=== PATIENT | female | born 1970 | race Caucasian/White ===

== ENCOUNTER 2016-11-05 12:26 | Emergency (ER) | payer OTHER ==
[2016-11-05 12:26] VITALS: BMI 34.9
[2016-11-05 12:41] VITALS: TEMP 99.4
--- NOTE | 2016-11-05 12:52 | ED PDOC ---
Arrival/HPI - General Chief Complaint: Palpitations Time Seen by Provider: 11/05/16 12:40 Historian: Patient - History of Present Illness Narrative History of Present Illness (Text): 11/05/16 12:45 46 year old female whose past medical history includes SVT presents to the emergency department with palpations since 10:30/11:00 this morning. Patient states she has not followed up with content editor since being seen in the ER two months ago with similar symptoms. No chest pain, shortness of breath, or other symptoms. Time/Duration: 1-3 hours Symptom Onset: Sudden Symptom Course: Unchanged Modifying Factors (Text): None Associated Symptoms (Text): None Past Medical History - Provider Review Nursing Documentation Reviewed: Yes - Reproductive Menopause: No - Cardiac Hx Cardiac Disorders: No Hx Angina: No Hx Cardiac Arrhythmia: No Hx Circulatory Problems: No Hx Congestive Heart Failure: No Hx Heart Murmur: No Hx Heart Transplant: No Hx Hypertension: Yes Hx Internal Defibrillator: No Hx Mitral Valve Prolapse: No Hx Pacemaker: No Hx Peripheral Edema: No Hx Peripheral Vascular Disease: No - Pulmonary Hx Respiratory Disorders: No Hx Asthma: No Hx Bronchitis: No Hx Chronic Obstructive Pulmonary Disease (COPD): No Hx Emphysema: No Hx Pneumonia: No Hx Respiratory Aspiration: No Hx Respiratory Tract Infection: No Hx Sleep Apnea: No Hx Tuberculosis: No - Neurological Hx Neurological Disorder: No Hx Alzheimer's Disease: No HX Cerebrovascular Accident: No Hx Dementia: No Hx Dizziness: No Hx Meningitis: No Hx Migraine: No Hx Parkinson's Disease: No Hx Seizures: No Hx Transient Ischemic Attacks (TIA): No - HEENT Hx HEENT Disorder: No Hx Blind: No Hx Cataracts: No Hx Deafness: No Hx Difficulty Chewing: No Hx Epistaxis: No Hx Glaucoma: No Hx Macular Degeneration: No - Renal Hx Renal Disorder: No Hx Dialysis: No Hx Kidney Stones: No Hx Neurogenic Bladder: No Hx Pyelonephritis: No Hx Renal Cancer: No Hx Renal Failure: No - Endocrine/Metabolic Hx Endocrine Disorders: No Hx Adrenal Cancer: No Hx Diabetes Insipidus: No Hx Diabetes Mellitus Type 1: No Hx Diabetes Mellitus Type 2: No Hx Hyperthyroidism: No Hx Hypothyroidism: No Hx Systemic Lupus Erythematosus: No - Hematological/Oncological Hx Blood Disorders: No Hx AIDS: No Hx Anemia: No Hx Cancer: No Hx Chemotherapy: No Hx Cirrhosis: No Hx Hemophilia: No Hx Hepatitis A: No Hx Hepatitis B: No Hx Hepatitis C: No Hx Metastasis: No Hx Shingles: No Hx Sickle Cell Disease: No Hx Unexplained Bleeding: No - Integumentary Hx Dermatological Disorder: No Hx Basal Cell Carcinoma: No Hx Eczema: No Hx Melanoma: No Hx Psoriasis: No Hx Squamous Cell Carcinoma: No - Musculoskeletal/Rheumatological Hx Falls: No - Gastrointestinal Hx Gastrointestinal Disorders: No Hx Colostomy: No Hx Crohn's Disease: No Hx Diverticulitis: No Hx Gall Bladder Disease: No Hx Gastroesophageal Reflux: No Hx Gastrointestinal Ulcer: No Hx Ileostomy: No Hx Liver Failure: No Hx Pancreatitis: No HX Swallowing Problems: No - Genitourinary/Gynecological Hx Genitourinary Disorders: No Hx Hematuria: No Hx Incontinence: No Hx Prostate Problems: No Hx Sexually Transmitted Diseases: No Hx Urinary Tract Infection: No - Psychiatric Hx Psychophysiologic Disorder: No Hx Anxiety: No Hx Bipolar Disorder: No Hx Depression: No Hx Emotional Abuse: No Hx Hallucinations: No Hx Panic Disorder: No Hx Post Traumatic Stress Disorder: No Hx Psychosis: No Hx Physical Abuse: No Hx Schizophrenia: No Hx Sexual Abuse: No Hx Substance Use: No - Past Surgical History Past Surgical History: No Previous - Surgical History Hx Amputation: No Hx Appendectomy: No Hx Cardiac Catheterization: No Hx Cholecystectomy: No Hx Coronary Stent: No Hx Gastric Bypass Surgery: No Hx Hysterectomy: No Hx Joint Replacement: No Hx Kidney Transplant: No Hx Liver Transplant: No Hx Mastectomy: No Hx Musculoskeletal Surgery: No Hx Open Heart Surgery: No Hx Orthopedic Surgery: No Hx Splenectomy: No Hx Valve Replacement: No - Anesthesia Hx Anesthesia: No - Suicidal Assessment Feels Threatened In Home Enviroment: No Family/Social History - Physician Review Nursing Documentation Reviewed: Yes Family/Social History: Unknown Family HX Smoking Status: Never Smoked Hx Alcohol Use: No Hx Substance Use: No Allergies/Home Meds Allergies/Adverse Reactions: Allergies No Known Allergies Allergy (Verified 08/28/13 21:13) Home Medications: Home Meds Medication Instructions Recorded Confirmed Losartan/Hydrochlorothiazide 1 tab PO DAILY 11/05/16 11/05/16 [Losartan Potassium-Hydrochlorothiazide 12.5 M] Review of Systems - Physician Review All systems were reviewed & negative as marked: Yes Physical Exam - Physical Exam Narrative Physical Exam (Text): - Review of Systems Constitutional: Normal. absent: Fatigue, Weight Change, Fevers Eyes: Normal ENT: Normal Respiratory: Normal absent: SOB, Cough, Sputum Cardiovascular: Palpitations absent: Chest pain, Syncope Gastrointestinal: Normal absent: Abdominal pain, Diarrhea, Nausea, Vomiting Genitourinary: Normal. absent: Dysuria, Frequency, Hematuria Musculoskeletal: Normal. absent: Arthralgias, Back Pain, Neck Pain Skin: Normal Neurological: Normal absent: Focal Weakness Endocrine: Normal Hemo/Lymphatic: Normal Psychiatric: Normal - Physical exam Patient appears age appropriate, speaking full sentences without difficulty - Systems Exam Head: Present: Atraumatic, Normocephalic Pupils: Present: PERRL Extraocular Muscles: Present: EOMI Conjunctiva: Present: Normal Mouth: Present: Moist Mucous Membranes Neck: Present: Normal Range of Motion. No: MIDLINE TENDERNESS, Paraspinal Tenderness Respiratory/Chest: Present: Clear to Auscultation, Good Air Exchange. No: Respiratory Distress, Accessory Muscle Use, Tachypnic Cardiovascular: Present: Tachycardic, Regular Rhythm, Normal S1, S2, Peripheral Pulses Present. No: Murmurs Abdomen: Present: Normal Bowel Sounds, No: Tenderness, Peritoneal Signs, Rebound, Guarding, Distention Back: Present: Normal Inspection. No: Midline Tenderness, Paraspinal Tenderness Upper Extremity: Present: Normal Inspection. No: Cyanosis, Edema Lower Extremity: Present: Normal Inspection. No: Edema Neurological: Present: GCS=15, Speech Normal, cranial nerves II through XII fully intact with no cerebellar abnormality, neuro-sensory fully intact. No focal neurological deficits. Skin: Present: Warm, Dry, Normal Color. No: Rashes Lymphatic: Present: OX3, NI, NC Psychiatric: Present: Alert, Oriented x 3, Normal Insight, Normal Concentration. Vital Signs Reviewed: Yes Vital Signs Temp Pulse Pulse Resp BP Pulse Ox 11/05/16 15:36 96 H 18 111/64 98 11/05/16 14:26 112 H 20 118/62 99 11/05/16 12:35 99.4 F 210 H 222 H 20 122/74 100 Temperature: Afebrile Blood Pressure: Normal Pulse: Tachycardic Respiratory Rate: Normal Appearance: Positive for: Well-Appearing, Non-Toxic, Comfortable Pain Distress: None Mental Status: Positive for: Alert and Oriented X 3 Medical Decision Making ED Course and Treatment: Impression: 46 year old female whose past medical history includes SVT presents to the emergency department with palpations since 10:30/11:00 this morning. On physical exam, patient is tachycardic. Differential Diagnosis included but are not limited to: SVT Plan: -- EKG, Chest X-ray -- Adenosine -- Labs -- Reassess and disposition Prior Visits: Notes and results from previous visits were reviewed. Patient last seen in the ED on 09/12/16 and admitted for SVT in the past. Patient has a past medical history of diabetes, esophagitis, obesity, elevated LFT's. Patient was seen by Dr. Sosa and was supposed to follow up with him on 09/14/16 Progress Notes: Initial EKG shows sinus tachycardia at 220 BPM with SVT. Interpreted by me. Repeat EKG shows sinus tachycardia at [address] elevations, normal intervals. Interpreted by me. Case discussed with Dr. Sosa, recommends starting patient on Metoprolol 50 mg daily and outpatient follow up. 11/05/16 15:42 pt's HR below 100 denies any complaints pt's states they made an appt with a content editor for tmr afternoon pt denies any complaints states she feels comfortable being dc'd home with outpatient f/u Pt states she understands to return to the ER right away for new or worsening symptoms or for inability to f/u with PMD or specialist as instructed. Patient states that she fully agrees with and understands discharge instructions. States that she agrees with the plan and disposition. Verbalized and repeated discharge instructions and plan. I have given the patient opportunity to ask any additional questions. Chest xray interpreted by ED physician shows no pneumothorax, no cardiomegaly, no infiltrates - Critical Care Critical Care Minutes: 30 minutes - Lab Interpretations Lab Results: 11/05/16 13:07 11/05/16 13:07 Lab Results 11/05/16 13:07: TSH 3rd Generation 2.48 11/05/16 13:07: Sodium 136, Potassium 4.1, Chloride 100, Carbon Dioxide 24, Anion Gap 16, BUN 15, Creatinine 0.7, Est GFR ( Amer) > 60, Est GFR (Non- Af Amer) > 60, Random Glucose 235 H, Calcium 9.1, Total Bilirubin 0.7, AST 141 H , ALT 168 H, Alkaline Phosphatase 69, Total Protein 8.6 H, Albumin 4.2, Globulin 4.4, Albumin/Globulin Ratio 1.0 L 11/05/16 13:07: PT 10.5, INR 0.97, APTT 28.5, D-Dimer, Quantitative 0.42 11/05/16 13:07: WBC 13.4 H D, RBC 5.00, Hgb 14.0, Hct 41.8, MCV 83.6, MCH 28.0, MCHC 33.5, RDW 14.4, Plt Count 383, MPV 9.1, Gran % 73.5 H, Lymph % (Auto) 19.1 L, Yancey % (Auto) 6.0, Eos % (Auto) 1.1 L, Baso % (Auto) 0.3, Gran # 9.88 H, Lymph # 2.6, Yancey # 0.8 H, Eos # 0.2, Baso # 0.04 - RAD Interpretation Radiology Orders: 11/05/16 12:41 CHEST PORTABLE [RAD] Stat - EKG Interpretation Interpreted by ED Physician: Yes Type: 12 lead EKG - Medication Orders Current Medication Orders: Discontinued Medications Adenosine (Adenosine 6 Mg/2 Ml Inj) Confirm Administered Dose 6 mg .ROUTE .STK- MED ONE Stop: 11/05/16 12:37 Adenosine (Adenosine 6 Mg/2 Ml Inj) Confirm Administered Dose 6 mg .ROUTE .STK- MED ONE Stop: 11/05/16 12:37 - Scribe Statement The provider has reviewed the documentation as recorded by the Carmencita Nava Provider Scribe Attestation: All medical record entries made by the Carmencita were at my direction and personally dictated by me. I have reviewed the chart and agree that the record accurately reflects my personal performance of the history, physical exam, medical decision making, and the department course for this patient. I have also personally directed, reviewed, and agree with the discharge instructions and disposition. Disposition/Present on Arrival - Present on Arrival Any Indicators Present on Arrival: No History of DVT/PE: No History of Uncontrolled Diabetes: No Urinary Catheter: No History of Decub. Ulcer: No History Surgical Site Infection Following: None - Disposition Have Diagnosis and Disposition been Completed?: Yes Diagnosis: SVT (supraventricular tachycardia) Disposition: HOME/ ROUTINE Disposition Time: 15:48 Patient Plan: Discharge Condition: GOOD Discharge Instructions (ExitCare): Supraventricular Tachycardia (ED) Additional Instructions: PLEASE RETURN TO THE EMERGENCY DEPARTMENT FOR NEW OR WORSENING SYMPTOMS. RETURN RIGHT AWAY IF YOU CANNOT FOLLOW UP WITH YOUR PRIMARY CARE DOCTOR, CLINIC, OR SPECIALIST IN 1-2 DAYS. Prescriptions: Metoprolol Tartrate [Lopressor] 50 mg PO DAILY #7 tab Referrals: Macario Garcia MD [Primary Care Provider] - Follow up with primary Juan Mercado MD [Staff Provider] - Follow up with primary Forms: WORK NOTE
[2016-11-05 13:08] LABS: ADD MANUAL DIFF? NO
[2016-11-05 13:13] LABS: BASO # 0.04 K/mm3 (0.0-2.0); BASO % 0.3 % (0.0-3.0); EOS # 0.2 (0.0-0.7); EOS % 1.1 % (1.5-5.0); GRAN # 9.88 (1.4-6.5); GRAN % 73.5 % (50.0-68.0); HEMATOCRIT 41.8 % (36.0-48.0); LYMPH # 2.6 (1.2-3.4); LYMPH % 19.1 % (22.0-35.0); MEAN CELL VOLUME 83.6 fL (80.0-105.0); MEAN CORPUSCULAR HGB CONC 33.5 g/dl (31.0-37.0); MEAN PLATELET VOLUME 9.1 fl (7.0-11.0); MONO # 0.8 (0.1-0.6); PLATELET COUNT 383 10^3/uL (120.0-450.0); RED CELL DISTRIBUTION WIDTH 14.4 % (11.5-14.5); WHITE BLOOD COUNT 13.4 10^3/ul (4.5-11.0)
[2016-11-05 13:29] LABS: ALKALINE PHOSPHATASE 69 U/L (38-133); ALT/SGPT 168 U/L (7-56); AST/SGOT 141 U/L (15-39); BILIRUBIN,TOTAL 0.7 mg/dL (0.2-1.3); BLOOD UREA NITROGEN 15 mg/dL (7-21); CALCIUM 9.1 mg/dL (8.4-10.5); CARBON DIOXIDE 24 mmol/L (21-33); CHLORIDE 100 mmol/L (98-107); GFR AFRICAN-AMERICAN > 60; GLUCOSE,RANDOM 235 mg/dL (70-110); SODIUM 136 mmol/L (132-148); TOTAL PROTEIN 8.6 g/dL (5.8-8.3)
[2016-11-05 13:30] LABS: INR 0.97 (0.93-1.08); PARTIAL THROMBOPLASTIN TIME 28.5 Seconds (23.7-30.8); POTASSIUM 4.1 mmol/L (3.6-5.0)
[2016-11-05 13:46] LABS: D DIMER 0.42 mg/L FEU (0-0.50)
[2016-11-05 15:37] VITALS: BP 111/64; PULSE 96; RESP 18
[2016-11-05 15:42] VITALS: O2SAT 98
--- NOTE | 2016-11-05 15:54 | RAD ---
HISTORY: SVT COMPARISON: 09/11/2016 FINDINGS: LUNGS: No active pulmonary disease. PLEURA: No significant pleural effusion identified, no pneumothorax apparent. CARDIOVASCULAR: Normal. OSSEOUS STRUCTURES: No significant abnormalities. VISUALIZED UPPER ABDOMEN: Normal. OTHER FINDINGS: None. IMPRESSION: No active disease.
--- NOTE | 2016-11-05 17:08 | CARD ---
APPROVED REPORT EKG Measurement Heart [id number] <Conclusion> Sinus tachycardia Possible Left atrial enlargement Nonspecific ST abnormality Abnormal ECG
== END 2016-11-05 16:14 | disposition home or self-care (01) ==
LOC: ED 12:26
DX: I47.1 Supraventricular tachycardia (principal); I10 Essential (primary) hypertension
CPT/HCPCS: 71010; 80053; 84443; 85025; 85378; 85610; 85730; 93005; 99283; J0153